=== PATIENT | female | born 1980 | race Caucasian/White ===

== ENCOUNTER 2020-04-23 10:21 | Emergency (ER) | payer OTHER, SELFPAY ==
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
[2020-04-23 12:20] VITALS: BP 110/74; PULSE 83; RESP 18; TEMP 36.4; O2SAT 94; BMI 32.9
[2020-04-23 16:42] VITALS: BP 102/72; PULSE 85; RESP 16; TEMP 36.9; O2SAT 98
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
[2020-04-23] MEDS: Ketorolac Tromethamine 60 MG/2 ML VIAL 30 MG IM (16:50)
[2020-04-23] MEDS: Cyclobenzaprine HCl 5 MG TABLET PO (16:51)
== END 2020-04-23 17:17 | disposition home or self-care (01) ==
PROVIDERS: Emergency Provider Emergency Medicine
DX: S83.91XA Sprain of unspecified site of right knee, initial encounter (principal); Y04.2XXA Assault by strike against or bumped into by another person, initial encounter; M25.461 Effusion, right knee; Y93.89 Activity, other specified; Y92.9 Unspecified place or not applicable; Y99.9 Unspecified external cause status; Z85.3 Personal history of malignant neoplasm of breast; F11.90 Opioid use, unspecified, uncomplicated
CPT/HCPCS: 73564; 96372; 99284; J1885